=== PATIENT | female | born 1970 | race Caucasian/White ===

== ENCOUNTER 2018-02-15 15:33 | Inpatient (IN) | payer BC ==
[~2018-02-15] VITALS: Ht 157.5 cm; Wt 121.6 kg
[2018-02-15 15:33] VITALS: BP_SYST 116
[2018-02-15] MEDS ORDERED: NS 1000 ML IV.SOLN IV ONE (16:15)
[2018-02-15] MEDS ORDERED: MEROPENEM 1 GM in NS 100 ML IV ONE (16:15)
[2018-02-15 16:50] LABS: BASOPHILS # (AUTO) 0.1 K/uL (0.0-0.2); BASOPHILS % (AUTO) 0.7 % (0.0-2.0); EOSINOPHILS # (AUTO) 0.2 K/uL (0.0-0.4); EOSINOPHILS % (AUTO) 2.5 % (0.0-4.0); HEMATOCRIT 35.7 % (36-48); HEMOGLOBIN 11.4 g/dL (12.0-16.0); LYMPHOCYTES # (AUTO) 2.2 K/uL (1.0-5.5); LYMPHOCYTES % (AUTO) 25.4 % (20.5-51.5); MEAN CORPUSCULAR HEMOGLOBIN 24 pg (27-31); MEAN CORPUSCULAR HGB CONC 32 % (32-36); MEAN CORPUSCULAR VOLUME 76 fL (79.0-98.0); MONOCYTES # (AUTO) 0.3 K/uL (0.0-1.0); NEUTROPHILS # (AUTO) 5.8 K/uL (1.8-7.7); NEUTROPHILS % (AUTO) 67.4 % (40.0-70.0); PLATELET COUNT (AUTO) 313 K/uL (130-430); RED CELL DISTRIBUTION WIDTH 15.6 % (9.0-15.0); WHITE BLOOD COUNT (AUTO) 8.6 K/uL (4.8-10.8)
[2018-02-15 16:51] LABS: BILIRUBIN,URINE NEGATIVE (NEGATIVE); BLOOD, URINE 3+ (NEGATIVE); CLARITY/URINE CLOUDY (CLEAR); COLOR,URINE RED (YELLOW); GLUCOSE,URINE NEGATIVE (NEGATIVE); KETONES,URINE TRACE (NEGATIVE); LEUKOCYTE ESTERASE ,URINE NEGATIVE (NEGATIVE); NITRITE, URINE NEGATIVE (NEGATIVE); PROTEIN URINE 1+ (NEGATIVE); UROBILINOGEN,URINE 0.2 (0.2-1.0)
[2018-02-15 16:52] LABS: BACTERIA,URINE FEW /HPF (None Seen); RBC,URINE >100 /HPF (0-3); WBC,URINE 0-3 /HPF (0-3)
[2018-02-15 16:54] LABS: CALCIUM 9.2 mg/dL (8.4-11.0); CREATININE 0.75 mg/dL (0.55-1.30); POTASSIUM 3.6 mmol/L (3.5-5.1)
[2018-02-15 16:59] LABS: ALBUMIN 3.1 g/dL (3.4-4.8); TOTAL BILIRUBIN 0.3 mg/dL (0.0-1.0)
[2018-02-15] MEDS ORDERED: SUCR1TAB78 PO (17:20)
[2018-02-15] MEDS ORDERED: LORA-259 PO (17:20)
[2018-02-15] MEDS ORDERED: ALBMDI INH (17:20)
[2018-02-15 17:41] LABS: INR 0.9 (0.8-1.2)
[2018-02-15] MEDS ORDERED: MORPHINE 4 MG/ML INJ. SYRINGE ONE (18:07)
[2018-02-15] MEDS ORDERED: MORPHINE 4 MG/ML INJ. SYRINGE IVP ONE (18:15)
[2018-02-15 19:00] VITALS: BP_SYST 146
[2018-02-15 20:00] VITALS: BP_SYST 117
[2018-02-15 23:45] VITALS: BP_SYST 128
[2018-02-16] MEDS ORDERED: DEXAMETHASONE SOD PHOSPHATE 4 MG/ML VIAL INH ONE (00:15)
[2018-02-16] MEDS ORDERED: MORPHINE 4 MG/ML INJ. SYRINGE IVP PRN (00:15)
[2018-02-16] MEDS ORDERED: LORazepam 2 MG/ML VIAL IVP PRN (00:15)
[2018-02-16] MEDS ORDERED: ACETAMINOPHEN 325 MG TABLET PO PRN (00:15)
[2018-02-16] MEDS ORDERED: ONDANSETRON HCL 4 MG/2 ML VIAL IVP PRN (00:15)
[2018-02-16] MEDS: NACL 0.9% 1,000 ML IV SCH ×3 (01:58→20:10)
[2018-02-16 02:00] VITALS: BP_SYST 128
[2018-02-16] MEDS: ALBUTEROL SULFATE 0.083% 2.5 MG/3 ML VIAL.NEB INH PRN (02:24)
[2018-02-16] MEDS ORDERED: LevALBUTEROL HCL 1.25 MG/0.5 ML *CONC.* VIAL.NEB (XOPENEX CONC.) INH ONE (03:14)
[2018-02-16] MEDS ORDERED: MEROPENEM 500 MG VIAL IV ONE (04:59)
[2018-02-16] MEDS ORDERED: MEROPENEM 1 GM in NS 100 ML IV SCH (05:00)
[2018-02-16 07:18] LABS: BASOPHILS % (AUTO) 0.2 % (0.0-2.0); EOSINOPHILS # (AUTO) 0.2 K/uL (0.0-0.4); EOSINOPHILS % (AUTO) 2.7 % (0.0-4.0); HEMATOCRIT 29.8 % (36-48); HEMOGLOBIN 9.4 g/dL (12.0-16.0); LYMPHOCYTES # (AUTO) 2.3 K/uL (1.0-5.5); MEAN CORPUSCULAR HEMOGLOBIN 24 pg (27-31); MEAN CORPUSCULAR HGB CONC 32 % (32-36); MEAN CORPUSCULAR VOLUME 75 fL (79.0-98.0); MONOCYTES # (AUTO) 0.5 K/uL (0.0-1.0); MONOCYTES % (AUTO) 6.1 % (1.7-9.3); NEUTROPHILS # (AUTO) 5.1 K/uL (1.8-7.7); PLATELET COUNT (AUTO) 299 K/uL (130-430); RED BLOOD CELL COUNT(AUTO) 3.95 MIL/uL (4.2-6.2); RED CELL DISTRIBUTION WIDTH 15.7 % (9.0-15.0); WHITE BLOOD COUNT (AUTO) 8.1 K/uL (4.8-10.8)
[2018-02-16 08:00] VITALS: BP_SYST 130
[2018-02-16 08:09] LABS: ALBUMIN 2.4 g/dL (3.4-4.8); CREATININE 0.7 mg/dL (0.55-1.30); POTASSIUM 3.6 mmol/L (3.5-5.1); TOTAL BILIRUBIN 0.3 mg/dL (0.0-1.0)
[2018-02-16 08:35] LABS: CALCIUM 8.2 mg/dL (8.4-11.0)
[2018-02-16 12:02] VITALS: BP_SYST 108
[2018-02-16] MEDS: LORazepam 2 MG/ML VIAL IVP PRN (12:13)
[2018-02-16] MEDS: NS IV SCH ×2 (14:06→22:43)
[2018-02-16] MEDS: MEROPENEM IV SCH ×2 (14:06→22:43)
[2018-02-16 16:02] VITALS: BP_SYST 103
[2018-02-16 19:00] VITALS: BP_SYST 118
[2018-02-16 20:00] VITALS: BP_SYST 118
[2018-02-17] VITALS: BP_SYST 107
[2018-02-17] MEDS: NACL 0.9% 1,000 ML IV SCH ×2 (05:03→16:01)
[2018-02-17] MEDS: MEROPENEM IV SCH (05:03)
[2018-02-17] MEDS: NS IV SCH (05:03)
[2018-02-17] MEDS: LORazepam 2 MG/ML VIAL IVP PRN ×2 (05:12→20:58)
[2018-02-17 08:00] VITALS: BP_SYST 117
[2018-02-17] MEDS: [UNRECOGNIZED DRUG - OTHER] PO SCH ×2 (09:29→21:37)
[2018-02-17] MEDS ORDERED: CEFEPIME 2 GM in D5W 100 ML IV SCH (11:00)
[2018-02-17 12:00] VITALS: BP_SYST 122
[2018-02-17] MEDS: MEROPENEM 1 GM in NS 100 ML IV SCH ×2 (13:21→21:36)
[2018-02-17 16:00] VITALS: BP_SYST 117
[2018-02-17] MEDS: ACETAMINOPHEN 650 MG/20.3 ML UDC PO PRN (16:02)
[2018-02-17] MEDS: ALBUTEROL SULFATE 0.083% 2.5 MG/3 ML VIAL.NEB INH PRN (19:48)
[2018-02-17 19:55] VITALS: BP_SYST 106
[2018-02-18] VITALS: BP_SYST 104
[2018-02-18] MEDS: NACL 0.9% 1,000 ML IV SCH ×2 (02:09→12:07)
[2018-02-18] MEDS: MEROPENEM 1 GM in NS 100 ML IV SCH (05:48)
[2018-02-18] MEDS: ACETAMINOPHEN 650 MG/20.3 ML UDC PO PRN (05:57)
[2018-02-18 06:41] LABS: CREATININE 0.69 mg/dL (0.55-1.30); POTASSIUM 3.9 mmol/L (3.5-5.1)
[2018-02-18 06:50] LABS: ALBUMIN 2.4 g/dL (3.4-4.8); TOTAL BILIRUBIN 0.1 mg/dL (0.0-1.0)
[2018-02-18 07:26] LABS: EOSINOPHILS # (AUTO) 0.3 K/uL (0.0-0.4); MONOCYTES # (AUTO) 0.4 K/uL (0.0-1.0); MONOCYTES % (AUTO) 5.1 % (1.7-9.3); RED CELL DISTRIBUTION WIDTH 15.9 % (9.0-15.0)
[2018-02-18 07:28] LABS: BASOPHILS % (AUTO) 0.1 % (0.0-2.0); EOSINOPHILS % (AUTO) 4.2 % (0.0-4.0); HEMATOCRIT 30.8 % (36-48); HEMOGLOBIN 9.8 g/dL (12.0-16.0); LYMPHOCYTES # (AUTO) 2.9 K/uL (1.0-5.5); LYMPHOCYTES % (AUTO) 38.7 % (20.5-51.5); MEAN CORPUSCULAR HEMOGLOBIN 25 pg (27-31); MEAN CORPUSCULAR HGB CONC 32 % (32-36); NEUTROPHILS # (AUTO) 3.8 K/uL (1.8-7.7); NEUTROPHILS % (AUTO) 51.9 % (40.0-70.0); PLATELET COUNT (AUTO) 331 K/uL (130-430); RED BLOOD CELL COUNT(AUTO) 3.94 MIL/uL (4.2-6.2); WHITE BLOOD COUNT (AUTO) 7.4 K/uL (4.8-10.8)
[2018-02-18 07:39] LABS: MEAN CORPUSCULAR VOLUME 78 fL (79.0-98.0)
[2018-02-18 08:00] VITALS: BP_SYST 107
[2018-02-18] MEDS: [UNRECOGNIZED DRUG - OTHER] PO SCH (09:00)
[2018-02-18] MEDS ORDERED: LEVOFLOXACIN 500 MG TABLET PO ONE (11:00)
[2018-02-18] MEDS ORDERED: CHLO473M5 MM (11:14)
[2018-02-18] MEDS ORDERED: LEVO250T2 PO (11:14)
[2018-02-18 11:53] VITALS: BP_SYST 113
[2018-02-18 12:00] VITALS: BP_SYST 113
== END 2018-02-18 13:10 | disposition home or self-care (01) | DRG 920 ==
LOC: SED 15:33 → STU 17:53
PROVIDERS: ADMIT Internal Medicine; ATTEND Internal Medicine
DX: L76.22 Postprocedural hemorrhage of skin and subcutaneous tissue following other procedure (principal); T81.40XA Infection following a procedure, unspecified, initial encounter; L03.211 Cellulitis of face; F41.9 Anxiety disorder, unspecified; D64.9 Anemia, unspecified; Y83.8 Other surgical procedures as the cause of abnormal reaction of the patient, or of later complication, without mention of misadventure at the time of the procedure; Y92.89 Other specified places as the place of occurrence of the external cause; Z83.3 Family history of diabetes mellitus; Z81.8 Family history of other mental and behavioral disorders; Z88.1 Allergy status to other antibiotic agents; Z88.0 Allergy status to penicillin
CPT/HCPCS: 36415; 70486-TC; 80053; 81000-TC; 83605; 85025; 85610-TC; 85730-TC; 87040-TC; 87086; 93005; 94640; 94760; 96365; 99285; J0692; J2060; J2185; J2270; J7030; J7060; J7612; J7613